=== PATIENT | female | born 2000 | race Caucasian/White ===

== ENCOUNTER 2024-04-04 13:27 | Emergency (ER) | payer OTHER, SELFPAY ==
[2024-04-04 14:04] VITALS: BP 147/94; PULSE 81; RESP 16; TEMP 37.3; O2SAT 99; BMI 19.0
--- NOTE | 2024-04-04 17:30 | DI.US.S_ITS ---
PROCEDURE: US PERIPH VENOUS UP EXTREM LT INDICATIONS: L arm pain, numbness TECHNIQUE: Real-time imaging, as well as color and pulse Doppler interrogation, was performed of the upper extremity deep veins from the inferior neck to the antecubital fossa. COMPARISON: None. FINDINGS: The internal jugular vein, visualized portions of the subclavian vein, axillary, and brachial veins are free of intraluminal thrombus. Where physically possible, the veins are normally compressible. Color and pulse Doppler demonstrate normal intraluminal flow, with expected phasicity and pulsatility. Additional scanning of the cephalic and basilic veins of the superficial system demonstrates normal compressibility, without thrombus. IMPRESSION: No findings of upper extremity deep venous thrombosis can be seen. Note: Concordant preliminary findings given by the freight car inspector upon the completion of the examination to Kary Tenorio PA-C at 6:00 p.m. on April 04, 2024. Dictated by: Cisco Berger M.D. on 04/04/2024 at 17:20 Approved by: Cisco Berger M.D. on 04/04/2024 at 17:20
--- NOTE | 2024-04-04 17:33 | ED_ITS ---
HPI - Headache <Kary Tenorio PA-C - Last Filed: 04/04/24 19:12> General Chief Complaint: Headache Stated Complaint: diff breathing, palpitations Time Seen by Provider: 04/04/24 16:38 Mode of arrival: Ambulatory History of Present Illness HPI Narrative: 23-year-old female with past medical history migraines, acne, on Accutane, on oral contraceptive pills presents to the ED with 4 days of headache, lightheadedness, nausea. Patient also endorses that her face felt numb with a tingling sensation which has since resolved. Patient states that she is now feeling numbness and pain in her left arm. Patient took [id number] Excedrin for her headache at 7:00 a.m. this morning. Patient is concerned about a blood clot since she is on oral contraception. Patient endorses feeling nauseous earlier, however that has since subsided. Patient denies fever, chills, chest pain, shortness of breath, abdominal pain, vomiting, dysuria, syncope. Related Data Allergies Allergy/AdvReac Type Severity Reaction Status Date / Time amoxicillin Allergy Verified 04/04/24 17:54 Penicillins Allergy Verified 04/04/24 17:54 Review of Systems <Kary Tenorio PA-C - Last Filed: 04/04/24 19:12> Constitutional Constitutional: Denies chills, Denies fatigue, Denies fever(s), Denies frequent falls, Reports headache(s), Denies lethargy and Denies weakness Eyes Eyes: Denies change in vision, Denies eye discharge, Denies irritation and Denies loss of vision ENT Ears, Nose, Mouth, and Throat: Denies change in voice, Denies dizziness, Reports headache(s), Denies neck pain, Denies sore throat and Denies throat swelling Cardiovascular Cardiovascular: Denies chest pain, Denies irregular heart rhythm, Reports lightheadedness, Denies palpitations, Denies dyspnea, Denies dyspnea on exertion and Denies orthopnea Respiratory Respiratory: Denies cough, Denies dyspnea, Denies dyspnea on exertion and Denies wheezing Gastrointestinal Gastrointestinal: Denies abdominal pain, Denies change in bowel habits, Denies diarrhea, Reports nausea and Denies vomiting Musculoskeletal Musculoskeletal: Denies neck pain and Denies numbness Comments: Left arm pain, numbness, tingling Integumentary/Breasts Skin/Breast: Denies pruritus, Denies erythema, Denies rash and Denies wounds Neurologic Neurologic: Denies behavioral changes, Denies confusion, Denies dizziness, Denies frequent falls, Reports headache(s), Denies loss of vision, Denies numbness and Denies weakness Psychiatric Psychiatric: Denies anxiety, Denies behavioral changes, Denies confusion, Denies depression, Denies homicidal ideation and Denies suicidal ideation Endocrine Endocrine: Denies fatigue, Denies flushing and Denies palpitations Hematologic/Lymphatic Hematologic/Lymphatic: Denies easy bruising Allergic/Immunologic Allergic/Immunologic: Denies urticaria, Denies throat swelling and Denies wheezing Exam <Kary Tenorio PA-C - Last Filed: 04/04/24 19:12> Narrative Exam Narrative: Const General:?cooperative, healthy appearing and comfortable [facility] Head:?normal to inspection Ears:?hearing grossly normal bilaterally Nose:?external nose normal Face and sinus:?normal facial exam and sinuses nontender Mouth:?oral mucosae normal Throat:?posterior oropharynx normal Eyes General:?appearance normal, both eyes and all related structures Neck Neck:?normal visual inspection and no lymphadenopathy noted Resp Effort & Inspection:?normal respiratory effort Auscultation:?clear to auscultation bilaterally Cardio Rate:?regular rate Rhythm:?regular rhythm Musculoskeletal No swelling, erythema, bony tenderness to palpation. There is full range of motion. Strength and sensation is intact. There is some muscular tenderness to palpation of the left bicep and tricep areas. No midline tenderness to palpation. No paraspinal tenderness to palpation. Patient is neurovascularly intact. Neuro General:?patient alert, patient awake and patient oriented x3; PERRLA; CN 1 through 12 intact bilaterally; gait is normal Initial Vital Signs Initial Vital Signs: Vital Signs Temperature 99.1 F 04/04/24 14:04 Pulse Rate 81 04/04/24 14:04 Respiratory Rate 16 04/04/24 14:04 Blood Pressure 147/94 H 04/04/24 14:04 Pulse Oximetry 99 04/04/24 14:04 Oxygen Delivery Method Room Air 04/04/24 14:04 <Kayode Dunn DO - Last Filed: 04/04/24 19:20> Initial Vital Signs Initial Vital Signs: Vital Signs Temperature 99.1 F 04/04/24 14:04 Pulse Rate 81 04/04/24 14:04 Respiratory Rate 16 04/04/24 14:04 Blood Pressure 147/94 H 04/04/24 14:04 Pulse Oximetry 99 04/04/24 14:04 Oxygen Delivery Method Room Air 04/04/24 14:04 Course <Kary Tenorio PA-C - Last Filed: 04/04/24 19:12> Orders Ordered: ED Orders 04/04/24 17:30 periph venous up extrem lt Stat Discontinued Medications Acetaminophen (Acetaminophen 325 Mg Tablet) 975 mg PO NOW ONE Stop: 04/04/24 17:33 Last Admin: 04/04/24 18:16 Dose: 975 mg Documented By: MPO Dexamethasone (Dexamethasone 10 Mg/Ml Vial) 10 mg IV NOW ONE Stop: 04/04/24 17:33 Last Admin: 04/04/24 18:14 Dose: 10 mg Documented By: MPO Diphenhydramine HCl (Diphenhydramine 50 Mg/Ml Vial) 25 mg IV NOW ONE Stop: 04/04/24 17:33 Last Admin: 04/04/24 18:14 Dose: 25 mg Documented By: VIRI Sodium Chloride (Normal Saline 0.9%) 1,000 mls @ 1,000 mls/hr IV BOLUS ONE Stop: 04/04/24 18:31 Last Infusion: 04/04/24 19:03 Dose: Infused Documented By: [facility] Admin: 04/04/24 18:13 Dose: 1,000 mls/hr Documented By: MPO Ketorolac Tromethamine (Ketorolac 30 Mg/Ml Vial) 15 mg IV NOW ONE Stop: 04/04/24 17:33 Last Admin: 04/04/24 18:14 Dose: 15 mg Documented By: MPO Metoclopramide HCl (Metoclopramide 10 Mg/2 Ml Inj) 10 mg IV NOW ONE Stop: 04/04/24 17:33 Last Admin: 04/04/24 18:14 Dose: 10 mg Documented By: VIRI Vital Signs Vital signs: Vital Signs - 8 hr 04/04/24 14:04 Temperature 99.1 F Pulse Rate 81 Respiratory Rate 16 Blood Pressure 147/94 H Pulse Oximetry 99 Oxygen Delivery Method Room Air <Kaoyde Dunn DO - Last Filed: 04/04/24 19:20> Orders Ordered: ED Orders 04/04/24 17:30 US periph venous up extrem lt Stat Discontinued Medications Acetaminophen (Acetaminophen 325 Mg Tablet) 975 mg PO NOW ONE Stop: 04/04/24 17:33 Last Admin: 04/04/24 18:16 Dose: 975 mg Documented By: VIRI Dexamethasone (Dexamethasone 10 Mg/Ml Vial) 10 mg IV NOW ONE Stop: 04/04/24 17:33 Last Admin: 04/04/24 18:14 Dose: 10 mg Documented By: VIRI Diphenhydramine HCl (Diphenhydramine 50 Mg/Ml Vial) 25 mg IV NOW ONE Stop: 04/04/24 17:33 Last Admin: 04/04/24 18:14 Dose: 25 mg Documented By: VIRI Sodium Chloride (Normal Saline 0.9%) 1,000 mls @ 1,000 mls/hr IV BOLUS ONE Stop: 04/04/24 18:31 Last Infusion: 04/04/24 19:03 Dose: Infused Documented By: [facility] Admin: 04/04/24 18:13 Dose: 1,000 mls/hr Documented By: VIRI Ketorolac Tromethamine (Ketorolac 30 Mg/Ml Vial) 15 mg IV NOW ONE Stop: 04/04/24 17:33 Last Admin: 04/04/24 18:14 Dose: 15 mg Documented By: VIRI Metoclopramide HCl (Metoclopramide 10 Mg/2 Ml Inj) 10 mg IV NOW ONE Stop: 04/04/24 17:33 Last Admin: 04/04/24 18:14 Dose: 10 mg Documented By: VIRI Vital Signs Vital signs: Vital Signs - 8 hr 04/04/24 14:04 Temperature 99.1 F Pulse Rate 81 Respiratory Rate 16 Blood Pressure 147/94 H Pulse Oximetry 99 Oxygen Delivery Method Room Air MDM - Headache <Kary Tenorio PA-C - Last Filed: 04/04/24 19:12> MDM Narrative Medical decision making narrative: 23-year-old female with past medical history migraines, acne, on Accutane, on oral contraceptive pills presents to the ED with 4 days of headache, lightheade dness, nausea. Concern for primary headache versus cervical radiculopathy versus DVT versus other. Will obtain ultrasound left upper extremity. Will treat headache. Will reassess. Ultrasound without acute findings. Patient's symptoms responded well to medications. Recommend patient take Tylenol, ibuprofen for continued pain relief. Patient's arm pain likely due to cervical radiculopathy versus related to migraine. Recommend follow-up with PCP as soon as possible. ED return precautions discussed with patient. Patient verbalized understanding. Medical records reviewed: Yes Discharge Plan Departure Patient Disposition: Home Clinical Impression: Migraine Qualifiers: Migraine type: unspecified Status migrainosus presence: without status migrainosus Intractability: not intractable Qualified Code(s): G43.909 - Migraine, unspecified, not intractable, without status migrainosus Arm pain Qualifiers: Laterality: left Qualified Code(s): M79.602 - Pain in left arm Instructions: DI for Migraine Activity Restrictions/Additional Instructions: You were evaluated in the ED today for a migraine and left arm pain. Your ultrasound did not show any blood clots. Your headache and pain symptoms responded well to the medications. You may continue to take ibuprofen, Tylenol for pain. Your arm pain could either be from the migraine or radiating from the neck pain. Please follow-up with your PCP as soon as possible for further evaluation. Return to the ED if you have worsening symptoms, chest pain, shortness of breath. Stand Alone Forms: Patient Portal/API ED Sign-out <Kayode Dunn, DO - Last Filed: 04/04/24 19:20> Cosign ED Attending Cosignature Attestation: Dr Dunn Co-Sign Statement: I was available for consultation during this patient's emergency department visit. This chart is signed by myself for administrative purposes only. I did not have direct contact with this patient during this visit. They were seen independently by the APC.
[2024-04-04] MEDS: SODIUM CHLORIDE 0.9% 1,000 ML 1000 ML IV (18:13)
[2024-04-04] MEDS: KETOROLAC 30 MG/ML VIAL 15 MG IV (18:14)
[2024-04-04] MEDS: diphenhydrAMINE 50 MG/ML VIAL 25 MG IV (18:14)
[2024-04-04] MEDS: DEXAMETHASONE 10 MG/ML VIAL IV (18:14)
[2024-04-04] MEDS: METOCLOPRAMIDE 10 MG/2 ML INJ IV (18:14)
[2024-04-04] MEDS: ACETAMINOPHEN 325 MG TABLET 975 MG PO (18:16)
== END 2024-04-04 19:20 | disposition home or self-care (01) ==
PROVIDERS: Emergency Provider Student in an Organized Health Care Education/Training Program
DX: G43.909 Migraine, unspecified, not intractable, without status migrainosus (principal); M79.602 Pain in left arm
CPT/HCPCS: 93971; 96361; 96374; 96375; 99284; J1100; J1200; J1885; J2765